=== PATIENT | female | born 1950 | race Caucasian/White ===

== ENCOUNTER → 2019-05-31 14:17 | Outpatient (CLI) | payer MEDICARE, SELFPAY ==
[2019-05-31 15:51] LABS: Hematocrit 42.4 % (37-47); Hemoglobin 14.2 g/dL (12.0-15.0); Mean Corp Hgb Conc 33.5 g/dL (32-36); Mean Corpuscular Hgb 30.9 pg (27.0-32.0); Mean Corpuscular Volume 92.2 fL (81-99); Mean Platelet Vol. 10.2 fl (6.2-12.0); Platelet Count 298 K/mm3 (150-450); RBC Distribution Width CV 13.7 % (11.6-14.6); RBC Distribution Width SD 46.5 fl (35.1-43.9); White Blood Count 8.4 K/mm3 (4.4-11.0)
[2019-05-31 16:09] LABS: Hemoglobin A1c 5.1 % (4.2-6.3)
[2019-05-31 16:19] LABS: Homocysteine 7.3 umol/L (3.2-10.7)
[2019-05-31 16:24] LABS: Progesterone Level 0.14 ng/mL (See Comment); Vitamin B12 571 pg/mL (211-911)
[2019-05-31 16:55] LABS: ALB/GLOB Ratio 1.1 RATIO (0.9-2.4); AST(SGOT) 17 U/L (15-37); Alanine Aminotransfer ALT/SGPT 24 U/L (13-56); Albumin, Serum 4.1 g/dL (3.2-5.0); Alkaline Phosphatase 100 U/L (45-117); Anion Gap 5 (5-15); BUN 20 mg/dL (7-18); BUN/Creat Ratio 26.8 RATIO (10-20); Calcium,Total 9.1 mg/dL (8.5-10.1); Chloride 103 mmol/L (98-107); Cholesterol 264 mg/dL (200); Creatinine, Serum 0.74 mg/dL (0.55-1.02); EST Glomerular Filtration Rate 82 mL/min (>60); Est Glom Filt Rate - Afr Amer 100 mL/min (>60); Estradiol 19.2 pg/mL; Follicle Stimulating Hormone 22.8 mIU/mL; Free T3 2.6 pg/mL (2.18-3.98); Globulin 3.7 g/dL (2.2-4.2); Glucose 85 mg/dL (74-106); High Density Lipoprotein 51 mg/dL; Luteinizing Hormone 10.4 mIU/mL; Magnesium 2.2 mg/dL (1.6-2.6); Potassium 3.8 mmol/L (3.5-5.1); Prolactin 2.9 ng/mL; Protein, Total 7.8 g/dL (6.4-8.2); Sodium Level 138 mmol/L (136-145); T4 Free Direct 0.82 ng/dL (0.76-1.46); Thyroid Stim Hormone (TSH) 2.85 uIU/mL (0.358-3.74); Triglycerides 263 mg/dL; Very Low Density Lipoprotein 53 mg/dL (5-40)
[2019-06-03 16:07] LABS: DHEA Sulfate 78.7 ug/dL (20.4-186.6); Insulin Like Growth Factor 162 ng/mL (38-163); Testosterone, % Free 2.19 % (0.50-2.80); Testosterone, Total 9 ng/dL (3-41)
[2019-06-04 11:33] LABS: Sex Hormone-binding Globulin 32.2 nmol/L (17.3-125.0)
== END ==
PROVIDERS: Family Provider Preventive Medicine Occupational Medicine; PCP Preventive Medicine Occupational Medicine; Referring Provider Preventive Medicine Occupational Medicine; Visit Provider Preventive Medicine Occupational Medicine
DX: E03.9 Hypothyroidism, unspecified (principal); R53.82 Chronic fatigue, unspecified; M62.81 Muscle weakness (generalized); R68.82 Decreased libido; E66.9 Obesity, unspecified
CPT/HCPCS: 36415; 80053; 80061; 82533; 82607; 82627; 82670; 82746; 83001; 83002; 83036; 83090; 83735; 84144; 84146; 84270; 84305; 84402; 84403; 84436; 84439; 84443; 84481; 85027; 86141; 82626